=== PATIENT | male | born 1990 | race Caucasian/White ===

== ENCOUNTER 2017-10-19 09:37 | Emergency (ER) | payer OTHER ==
[2017-10-19 09:44] VITALS: RESP 16; TEMP 97.6
--- NOTE | 2017-10-19 10:38 | XR ---
EXAMINATION TYPE: XR knee complete RT DATE OF EXAM: 10/19/2017 CLINICAL HISTORY: Pain TECHNIQUE: Three views of the right knee are obtained. COMPARISON: None. FINDINGS: There are intra-articular fractures of both the medial and lateral tibial plateaus. No depr ession is seen. Comminution is noted at the lateral tibial plateau. Overall fractures are nondisplace d. Moderate suprapatellar joint effusion is present. Overlying soft tissue swelling is mild. IMPRESSION: Medial and lateral tibial plateau nondisplaced intra-articular fractures without depressi on. Comminution is seen of the lateral tibial plateau. Associated moderate suprapatellar joint effusi on.
[2017-10-19] MEDS ORDERED: HYDROcodone/APAP 5-325MG 1 EACH TAB PO STA (10:49)
[2017-10-19] MEDS ORDERED: HYDROcodone/APAP 5-325MG 1 EACH TAB ONE (11:05)
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
[2017-10-19 12:49] VITALS: BP 143/94; PULSE 91
== END 2017-10-19 13:01 | disposition home or self-care (01) ==
LOC: EC 09:37
DX: S82.144A Nondisplaced bicondylar fracture of right tibia, initial encounter for closed fracture (principal); F17.200 Nicotine dependence, unspecified, uncomplicated; Z98.890 Other specified postprocedural states; V28.4XXA Motorcycle driver injured in noncollision transport accident in traffic accident, initial encounter; Y93.89 Activity, other specified; Y92.89 Other specified places as the place of occurrence of the external cause
CPT/HCPCS: 73562; 73700; 99284; L1830